=== PATIENT | male | born 1960 | race Caucasian/White ===

== ENCOUNTER 2017-08-03 15:25 | Observation (INO) | payer SELFPAY ==
[~2017-08-03] VITALS: Ht 170.2 cm; Wt 68.0 kg
[~2017-08-03 15:25] MED LIST: CHLO25CA; DILA100C
[2017-08-03 15:29] VITALS: BP 133/81; PULSE 117; RESP 18; O2SAT 91
[2017-08-03 15:36] VITALS: RESP 16; TEMP 98.1; O2SAT 94
--- NOTE | 2017-08-03 15:39 | PD ---
HPI Chief Complaint: Chest Pain Time Seen by Provider: 15:31 Travel History International Travel<30 days: No Contact w/Intl Traveler<30days: No Traveled to known affect area: No History of Present Illness HPI 56-year-old male patient with history of COPD, smoking, hypertension, presents to the ER today because he has been having chest pain since last night, currently rated at a 8 out of 10, substernal, and he describes it as heart pain. He denies any coughing, fevers, shortness of breath, or any other symptoms. He does not know of any exacerbating alleviating factors. Modifying Factors: None Associated Signs & Symptoms: Chest pain Risk Factors: None PFSH Past Medical History Chest Pain: Yes COPD: Yes Diminished Hearing: No Respiratory: Yes Seizures: Yes Tetanus Vaccination: Unknown Past Surgical History Tonsillectomy: Yes Other Surgery: Yes (TUBES IN EARS) Social History Alcohol Use: Yes Tobacco Use: Yes (1 03/15 PPD) Substance Use: No Allergies-Medications (Allergen,Severity, Reaction): Coded Allergies: No Known Allergies (Verified Allergy, Severe, 01/10/07) Reported Meds & Prescriptions Reported Meds & Active Scripts Active No Active Prescriptions or Reported Medications Review of Systems Except as stated in HPI: all other systems reviewed are Neg Physical Exam Narrative GENERAL: Well-developed middle-age white male patient currently in mild respiratory distress. Awake and oriented 3. SKIN: Focused skin assessment warm/dry. HEAD: Atraumatic. Normocephalic. EYES: Pupils equal and round. No scleral icterus. No injection or drainage. ENT: No nasal bleeding or discharge. Mucous membranes pink and moist. NECK: Trachea midline. Positive JVD. CARDIOVASCULAR: Regular rate and rhythm. No murmur appreciated. RESPIRATORY: No accessory muscle use. Clear to auscultation. Breath sounds equal bilaterally. GASTROINTESTINAL: Abdomen soft, non-tender, nondistended. Hepatic and splenic margins not palpable. MUSCULOSKELETAL: No obvious deformities. No clubbing. No cyanosis. No edema. NEUROLOGICAL: Awake and alert. No obvious cranial nerve deficits. Motor grossly within normal limits. Normal speech. PSYCHIATRIC: Appropriate mood and affect; insight and judgment normal. Data Data Last Documented VS Vital Signs Date Time Temp Pulse Resp B/P (MAP) Pulse Ox O2 Delivery O2 Flow Rate FiO2 08/03/17 15:36 98.1 16 94 Room Air 08/03/17 15:29 117 133/81 (98) Orders Orders Electrocardiogram (08/03/17 15:32) B-Type Natriuretic Peptide (08/03/17 15:32) Ckmb (Isoenzyme) Profile (08/03/17 15:32) Complete Blood Count With Diff (08/03/17 15:32) Comprehensive Metabolic Panel (08/03/17 15:32) Magnesium (Mg) (08/03/17 15:32) Prothrombin Time / Inr (Pt) (08/03/17 15:32) Act Partial Throm Time (Ptt) (08/03/17 15:32) Troponin I (08/03/17 15:32) Ecg Monitoring (08/03/17 15:32) Bilateral Bp Monitoring (08/03/17 15:32) Iv Access Insert/Monitor (08/03/17 15:32) Oximetry (08/03/17 15:32) Oxygen Administration (08/03/17 15:32) Aspirin (Aspirin) (08/03/17 15:45) Sodium Chloride 0.9% Flush (Ns Flush) (08/03/17 15:45) Chest, Pa & Lat (08/03/17 15:32) Albuterol-Ipratropium Neb (Duoneb Neb) (08/03/17 16:45) Activity Bed Rest With Brp (08/03/17 17:16) Vital Signs (Adult) Q4H (08/03/17 17:16) Cardiac Rhythm .As Directed (08/03/17 17:16) Notify Dr: Other .PRN (08/03/17 17:16) Notify . Parameters (08/03/17 17:16) Resp Oxygen Nasal Cannula (08/03/17 ) Diet Heart Healthy (08/03/17 Dinner) Ckmb (Isoenzyme) Profile (08/03/17 17:16) Ckmb (Isoenzyme) Profile (08/03/17 20:16) Troponin I (08/03/17 17:16) Troponin I (08/03/17 20:16) Electrocardiogram (08/03/17 17:16) Electrocardiogram (08/03/17 20:16) ^ Obtain (08/03/17 17:16) Sodium Chloride 0.9% Flush (Ns Flush) (08/03/17 17:30) Sodium Chloride 0.9% Flush (Ns Flush) (08/03/17 21:00) Nitroglycerin 2% Oint (Nitroglycerin 2% (08/03/17 18:00) Alprazolam (Xanax) (08/03/17 17:30) Channel Layer / Telemetry MALIA.Q8H (08/03/17 17:16) Admit Order (Ed Use Only) (08/03/17 17:16) Labs Laboratory Tests Test 08/03/17 15:38 White Blood Count 7.4 TH/MM3 Red Blood Count 4.81 MIL/MM3 Hemoglobin 16.0 GM/DL Hematocrit 46.4 % Mean Corpuscular Volume 96.4 FL Mean Corpuscular Hemoglobin 33.3 PG Mean Corpuscular Hemoglobin Concent 34.6 % Red Cell Distribution Width 14.0 % Platelet Count 239 TH/MM3 Mean Platelet Volume 7.5 FL Neutrophils (%) (Auto) 59.3 % Lymphocytes (%) (Auto) 26.0 % Monocytes (%) (Auto) 13.3 % Eosinophils (%) (Auto) 0.5 % Basophils (%) (Auto) 0.9 % Neutrophils # (Auto) 4.4 TH/MM3 Lymphocytes # (Auto) 1.9 TH/MM3 Monocytes # (Auto) 1.0 TH/MM3 Eosinophils # (Auto) 0.0 TH/MM3 Basophils # (Auto) 0.1 TH/MM3 CBC Comment DIFF FINAL Differential Comment Prothrombin Time 9.7 SEC Prothromb Time International Ratio 1.0 RATIO Activated Partial Thromboplast Time 26.9 SEC Blood Urea Nitrogen 5 MG/DL Creatinine 0.67 MG/DL Random Glucose 107 MG/DL Total Protein 7.7 GM/DL Albumin 3.6 GM/DL Calcium Level 8.5 MG/DL Magnesium Level 2.0 MG/DL Alkaline Phosphatase 104 U/L Aspartate Amino Transf (AST/SGOT) 52 U/L Alanine Aminotransferase (ALT/SGPT) 60 U/L Total Bilirubin 0.4 MG/DL Sodium Level 133 MEQ/L Potassium Level 3.7 MEQ/L Chloride Level 93 MEQ/L Carbon Dioxide Level 27.4 MEQ/L Anion Gap 13 MEQ/L Estimat Glomerular Filtration Rate 122 ML/MIN Total Creatine Kinase 86 U/L Troponin I LESS THAN 0.02 NG/ML B-Type Natriuretic Peptide 9 PG/ML MDM Medical Decision Making Medical Screen Exam Complete: Yes Emergency Medical Condition: Yes Medical Record Reviewed: Yes Interpretation(s) EKG shows sinus tachycardia at a rate of 114 bpm. No signs of acute ST elevations or depressions. Laboratory Tests Test 08/03/17 15:38 Monocytes (%) (Auto) 13.3 % (0.0-8.0) Monocytes # (Auto) 1.0 TH/MM3 (0-0.9) Prothrombin Time 9.7 SEC (9.8-11.6) Blood Urea Nitrogen 5 MG/DL (7-18) Random Glucose 107 MG/DL (74-106) Aspartate Amino Transf (AST/SGOT) 52 U/L (15-37) Sodium Level 133 MEQ/L (136-145) Chloride Level 93 MEQ/L (98-107) Troponin I LESS THAN 0.02 NG/ML Last 24 hours Impressions Chest X-Ray 08/03/17 1532 Signed Impressions: CONCLUSION: No acute cardiopulmonary process. Differential Diagnosis Chest pains: ACS versus pneumonia versus COPD exacerbation versus costochondritis Narrative Course Chest x-ray is unremarkable. EKG did not show any signs of acute ST elevations or depressions. He does have some tachycardia, likely secondary to some alcohol withdrawal as well as anxiety. Patient does not have a primary care doctor, had to have a lot of encouragement from his kids to be here. Cardiac enzymes are negative. Lab work was otherwise unremarkable. My plan would be to admit the patient for further evaluation and a chest pain center. Diagnosis Primary Impression: Chest pain Admitting Information Admitting Physician Requests: Admit Scripts No Active Prescriptions or Reported Meds Maykel Tenorio MD August 03, 2017 15:39
[2017-08-03] MEDS ORDERED: ASPIRIN 325 MG TAB PO ONE (15:45)
[2017-08-03] MEDS ORDERED: SODIUM CHLORIDE 0.9% FLUSH 10 ML FLUSH IVF PRN (15:45)
[2017-08-03 16:00] LABS: AUTOMATED NEUTROPHIL # 4.4 TH/MM3 (1.8-7.7); BASOPHIL # 0.1 TH/MM3 (0-0.2); BASOPHIL % 0.9 % (0.0-2.0); EOSINOPHIL % 0.5 % (0.0-4.0); HEMATOCRIT 46.4 % (39.0-51.0); LYMPHOCYTE # 1.9 TH/MM3 (1.0-4.8); MEAN CELL VOLUME 96.4 FL (80.0-100.0); MEAN CORPUSCULAR HEMOGLOBIN 33.3 PG (27.0-34.0); MEAN CORPUSCULAR HGB CONC 34.6 % (32.0-36.0); MEAN PLATELET VOLUME 7.5 FL (7.0-11.0); MONO % 13.3 % (0.0-8.0); NEUT % 59.3 % (16.0-70.0); PLATELET COUNT 239 TH/MM3 (150-450); RED BLOOD COUNT 4.81 MIL/MM3 (4.50-5.90); WHITE BLOOD COUNT 7.4 TH/MM3 (4.0-11.0)
[2017-08-03 16:10] LABS: PROTHROMBIN TIME - PATIENT 9.7 SEC (9.8-11.6)
--- NOTE | 2017-08-03 16:21 | RADRPT ---
EXAM DATE: 08/03/2017 4:13 PM EDT AGE/SEX: 56 years / Male INDICATIONS: Chest pain. CLINICAL DATA: This is the patient's initial encounter. Patient reports that signs and symptoms have been present for 1 day and indicates a pain score of 5/10. MEDICAL/SURGICAL HISTORY: . smokes None. COMPARISON: No prior [facility] exams available for comparison. FINDINGS: PA and lateral views of the chest demonstrate the lungs to be symmetrically aerated without evidence of mass, infiltrate or effusion. The cardiomediastinal contours are unremarkable. There is a mild com pression deformity at T9. This appears chronic.. CONCLUSION: No acute cardiopulmonary process. Electronically signed by: Tremayne Grant MD 08/03/2017 4:20 PM EDT
[2017-08-03 16:33] LABS: ALBUMIN 3.6 GM/DL (3.4-5.0); ALT (GPT) 60 U/L (12-78); AST (GOT) 52 U/L (15-37); BICARBONATE 27.4 MEQ/L (21.0-32.0); BLOOD UREA NITROGEN 5 MG/DL (7-18); CALCIUM 8.5 MG/DL (8.5-10.1); CHLORIDE 93 MEQ/L (98-107); CREATININE 0.67 MG/DL (0.60-1.30); GLOMERULAR FILTRATION RATE 122 ML/MIN (>89); GLUCOSE,RANDOM 107 MG/DL (74-106); SODIUM (NA) 133 MEQ/L (136-145)
[2017-08-03 16:37] LABS: ALKALINE PHOSPHATASE 104 U/L (45-117); TOTAL BILIRUBIN ADULT 0.4 MG/DL (0.2-1.0); TOTAL PROTEIN 7.7 GM/DL (6.4-8.2); TROPONIN I LESS THAN 0.02 NG/ML (0.02-0.05)
[2017-08-03] MEDS ORDERED: RESP: ALBUTEROL 2.5 MG/IPRATROPIUM 0.5 MG NEB (SCH) INH ONE (16:45)
[2017-08-03] MEDS ORDERED: SODIUM CHLORIDE 0.9% FLUSH 10 ML FLUSH IV FLUSH PRN (17:30)
[2017-08-03] MEDS ORDERED: ALPRAZolam 0.25 MG TAB PO PRN (17:30)
[2017-08-03 17:42] VITALS: BP 125/70
[2017-08-03] MEDS: NITROGLYCERIN 2% OINT 1 GM PACKET TOP SCH (17:43)
[2017-08-03 18:32] VITALS: BP 123/77; PULSE 104; RESP 18; TEMP 98.5; O2SAT 92
[2017-08-03 19:33] LABS: TROPONIN I LESS THAN 0.02 NG/ML (0.02-0.05)
[2017-08-03] MEDS ORDERED: IOHEXOL 350 MG/ML 10 ML VIAL (for RAD DIAG) IVCONTRAST ONE (19:39)
--- NOTE | 2017-08-03 19:51 | RADRPT ---
EXAM DATE: 08/03/2017 7:45 PM EDT AGE/SEX: 56 years / Male INDICATIONS: Chest pain CLINICAL DATA: This is the patient's initial encounter. Patient reports that signs and symptoms have been present for 2 days and indicates a pain score of 5/10. MEDICAL/SURGICAL HISTORY: Chronic obstructive pulmonary disease. Hypertension. Seizure None. RADIATION DOSE: 7.36 CTDI (mGy) COMPARISON: No prior [facility] exams available for comparison. TECHNIQUE: Volumetric scanning was performed using a multi-row detector CT scanner during bolus infu lena of 74 ml Omnipaque 350 (iohexol) nonionic water-soluble contrast as a single exam dose. The july a was post processed with a variety of visualization algorithms including full volume maximum intensi ty projection and sliding thin slab reformation. Using automated exposure control and adjustment of the mA and/or kV according to patient size, radiation dose was kept as low as reasonably achievable t o obtain optimal diagnostic quality images. FINDINGS: Pulmonary Arteries: No filling defects are seen in the pulmonary arteries through the segmental vess els. The main pulmonary artery is normal in diameter. Lung: Mild upper lobe predominant diffuse centrilobular emphysema. No focal parenchymal abnormality. Pleura: No effusion, significant pleural thickening or pneumothorax. Mediastinum: Heart is unremarkable without pericardial effusion. Prominent coronary artery calcifica tions. No evidence of mediastinal or hilar adenopathy. There is asymmetrical prominence of the right posterior esophageal wall with questionable trace paraesophageal fluid distally near the GE junction. Osseous Structures: No abnormal focal lytic or blastic bony lesions. Other: Diffusely decreased hepatic attenuation without significant volume loss. CONCLUSION: 1. No CT evidence for pulmonary artery embolism as questioned. 2. Asymmetrical prominence of the right mid to distal posterior esophageal wall with questionable tr alexis paraesophageal fluid distally near the GE junction. Findings may reflect esophagitis. Malignancy is less likely but cannot be excluded. 3. Prominent coronary artery calcifications. 4. Mild upper lobe predominant centrilobular emphysema. 5. Diffusely decreased hepatic density without volume loss consistent with hepatic steatosis. Electronically signed by: Vargas Prince MD 08/03/2017 7:49 PM EDT
[2017-08-03 20:01] VITALS: BP 109/71; PULSE 102; RESP 16; TEMP 98.5; O2SAT 92
[2017-08-03] MEDS: SODIUM CHLORIDE 0.9% FLUSH 10 ML FLUSH IV FLUSH SCH (20:29)
[2017-08-03 22:18] LABS: TROPONIN I LESS THAN 0.02 NG/ML (0.02-0.05)
[2017-08-03 23:00] VITALS: PULSE 96
[2017-08-04] VITALS: BP 129/66; PULSE 113; RESP 18; TEMP 98.6; O2SAT 96
[2017-08-04 04:00] VITALS: BP 130/74; PULSE 78; PULSE 84; RESP 18; TEMP 98.4; O2SAT 98
[2017-08-04] MEDS: NITROGLYCERIN 2% OINT 1 GM PACKET TOP SCH ×2 (06:00)
[2017-08-04] MEDS ORDERED: NITROGLYCERIN 0.4 MG SL 25 TABS/BTL SL PRN (07:15)
[2017-08-04] MEDS ORDERED: ONDANSETRON ODT 4 MG TAB PO PRN (07:15)
[2017-08-04] MEDS ORDERED: ACETAMINOPHEN 500 MG CPLT PO PRN (07:15)
--- NOTE | 2017-08-04 08:03 | HHI.HP ---
HPI Primary Care Physician No Primary Care Physician Chief Complaint Chest pain History of Present Illness 56-year-old male current smoker and reports daily alcohol use since the emergency room for further evaluation of chest pain. Onset Tuesday p.m. 10:00. Reports substernal chest discomfort described as "severe heartburn." No associated symptoms of nausea, vomiting, dyspnea, or diaphoresis. Took multiple antacids discomfort subsided. Discomfort returned Tuesday gradual onset. 2 PM discomfort became severe therefore called the back to bring the ER for further evaluation. Associated symptoms included "burning in my throat." No nausea, vomiting dyspnea or diaphoresis. Duration approximately 2 hours. No no precipitating or relieving factors. Last evening had moderate episode of substernal burning. Duration 1 hour. Denies similar pain in the past. No current chest pain. States "I feel fine now." No recent illness, fever, or chills. Denies hemoptysis or bowel changes. Eating or alcohol use does not make discomfort better or worse. (Radha Carlson) History of Present Illness The patient was given antacids by his daughter with resultant relief of discomfort for a short period of time. In spite of multiple encounters with a bruce the patient has not been free of alcohol abuse for more than 3 months in his entire adult life. Had long talk with the patient and with the family regarding his current status and imperative of stopping both cigarettes and alcohol at this time. Family is very supportive of change. (Julien Ruiz MD) Review of Systems General: No fatigue,weakness, fever, chills, or recent illness. He has been in his general state of health. HEENT: No CURTIS, no vision changes, no nasal congestion or drainage, no dysphasia. Denies history of GERD. CV: As stated above. No current chest pain, discomfort or pressure. No intermittent leg pain. RESP: No change in "daily smoker's cough." No SOB, wheeze, or hemoptysis. History of :"borderline" COPD, never being placed on inhalers. GI: No nausea, vomiting, bowel changes, diarrhea, constipation, pain, distention , melena, or blood in the stool. No change in appetite. : No dysuria, urgency, frequency, or hematuria EXT: No lower leg edema, no paraesthesias MS: No discomfort, injury, or change in ROM NEURO: No change in memory, difficulty with balance, LOC, motor/sensory deficits PSYCH: No anxiety or depression SKIN: No rashes, no concerning lesions (Radha Carlson) Past Family Social History Allergies: Coded Allergies: No Known Allergies (Verified Allergy, Severe, 01/10/07) Past Medical History COPD, alcohol abuse Past Surgical History Tonsillectomy Reported Medications Reported Meds & Active Scripts Active No Active Prescriptions or Reported Medications Active Ordered Medications Current Medications Medications (Trade) Dose Ordered Sig/Ash Route Start Time Stop Time Status Last Admin (NS Flush) 2 ml UNSCH PRN IV FLUSH 08/03/17 17:30 (NS Flush) 2 ml BID IV FLUSH 08/03/17 21:00 08/03/17 20:29 (Nitroglycerin 2% Oint) 1 inch Q6HR TOP 08/03/17 18:00 08/03/17 17:43 (Xanax) 0.25 mg Q8H PRN PO 08/03/17 17:30 08/03/17 21:32 (Tylenol) 500 mg Q4H PRN PO 08/04/17 07:15 (Zofran Odt) 4 mg Q6H PRN PO 08/04/17 07:15 (Nitrostat Sl) 0.4 mg Q5M PRN SL 08/04/17 07:15 (Aspirin) 325 mg DAILY PO 08/04/17 09:00 Family History Noncontributory for early onset cardiovascular disease. Social History No known coronary artery disease, hypertension, diabetes, or hyperlipidemia. Endorses not seen a primary care provider in over 10 years. Current 1.5 pack/day smoker. Endorses daily alcohol use, unable to give amount drank, stating "I drink all day." Single. Endorses active lifestyle and has physical job. Past cardiac testing None (Radha Carlson) Physical Exam Vital Signs Vital Signs Date Time Temp Pulse Resp B/P (MAP) Pulse Ox O2 Delivery O2 Flow Rate FiO2 08/04/17 04:00 78 08/04/17 04:00 98.4 84 18 130/74 (92) 98 08/04/17 00:00 98.6 113 18 129/66 (87) 96 08/03/17 23:00 96 5/23/18 20:01 98.5 102 16 109/71 (84) 92 08/03/17 18:50 08/03/17 18:32 98.5 104 18 123/77 (92) 92 08/03/17 17:42 125/70 (88) 08/03/17 15:36 98.1 16 94 Room Air 08/03/17 15:29 117 18 133/81 (98) 91 Physical Exam GENERAL: Alert WN, WD, NAD, pleasant, , thin male HEAD: NC, AT EYES: Sclera slightly reddened, conjunctiva without injection ENT: Mucous membranes pink and moist, poor dentation NECK: Supple, no masses, trachea midline CV: RRR, without murmur, rub, gallop, no JVD, S1-S2 no S3-S4. Chest wall nontender with palpation. RESP: Bilateral base expiratory wheeze with prolonged expiratory phase. No crackles, wheeze, or rhonchi. Symmetrical chest rise, nonlabored, able to speak in full sentences ABD: Soft, NT, ND, no masses, hepatomegaly, positive bowel tones, epigastric area nontender with palpation EXT: Pulses +2x4, no dependent edema MS: Normal tone x4 extremities, nontender, no obvious deformities, full range of motion NEURO: CN II through CN XII grossly intact, motor strength 5/5, gait WNL PSYCH: A+O x3, flat affect, appropriate speech, insight and judgment. Mild anxiety. SKIN: Normal turgor, normal texture, no lesions, no rashes, solar damage, tattoos, sluggish capillary refill Laboratory Laboratory Tests Test 08/03/17 15:38 08/03/17 18:35 08/03/17 21:37 White Blood Count 7.4 Red Blood Count 4.81 Hemoglobin 16.0 Hematocrit 46.4 Mean Corpuscular Volume 96.4 Mean Corpuscular Hemoglobin 33.3 Mean Corpuscular Hemoglobin Concent 34.6 Red Cell Distribution Width 14.0 Platelet Count 239 Mean Platelet Volume 7.5 Neutrophils (%) (Auto) 59.3 Lymphocytes (%) (Auto) 26.0 Monocytes (%) (Auto) 13.3 Eosinophils (%) (Auto) 0.5 Basophils (%) (Auto) 0.9 Neutrophils # (Auto) 4.4 Lymphocytes # (Auto) 1.9 Monocytes # (Auto) 1.0 Eosinophils # (Auto) 0.0 Basophils # (Auto) 0.1 CBC Comment DIFF FINAL Differential Comment Prothrombin Time 9.7 Prothromb Time International Ratio 1.0 Activated Partial Thromboplast Time 26.9 Blood Urea Nitrogen 5 Creatinine 0.67 Random Glucose 107 Total Protein 7.7 Albumin 3.6 Calcium Level 8.5 Magnesium Level 2.0 Alkaline Phosphatase 104 Aspartate Amino Transf (AST/SGOT) 52 Alanine Aminotransferase (ALT/SGPT) 60 Total Bilirubin 0.4 Sodium Level 133 Potassium Level 3.7 Chloride Level 93 Carbon Dioxide Level 27.4 Anion Gap 13 Estimat Glomerular Filtration Rate 122 Total Creatine Kinase 86 108 57 Troponin I LESS THAN 0.02 LESS THAN 0.02 LESS THAN 0.02 B-Type Natriuretic Peptide 9 Creatine Kinase MB 0.7 (Radha Carlson) Physical Exam Addendum: Conjunctiva is injected, throat is quite red. Abdomen reveals firm liver edge (Julien Ruiz MD) Result Diagram: 08/03/17 1538 08/03/17 1538 Imaging Last [address] Angiography 08/03/17 1728 Signed Impressions: CONCLUSION: 1. No CT evidence for pulmonary artery embolism as questioned. 2. Asymmetrical prominence of the right mid to distal posterior esophageal wal l with questionable trace paraesophageal fluid distally near the GE junction. F indings may reflect esophagitis. Malignancy is less likely but cannot be exclud ed. 3. Prominent coronary artery calcifications. 4. Mild upper lobe predominant centrilobular emphysema. 5. Diffusely decreased hepatic density without volume loss consistent with hep atic steatosis. Chest X-Ray 08/03/17 1532 Signed Impressions: CONCLUSION: No acute cardiopulmonary process. Course EKG Normal sinus tachycardia, no ST-T segment change (Radha Carlson) Caprini VTE Risk Assessment Caprini VTE Risk Assessment: No/Low Risk (score <= 1) Caprini Risk Assessment Model Point Value = 1 Point Value = 2 Point Value = 3 Point Value = 5 Age 41-60 Minor surgery BMI > 25 kg/m2 Swollen legs Varicose veins or History of unexplained or recurrent spontaneous Oral contraceptives or hormone replacement Sepsis (< 1 month) Serious lung disease, including pneumonia (< 1 month) Abnormal pulmonary function Acute myocardial infarction Congestive heart failure (< 1 month) History of inflammatory bowel disease Medical patient at bed rest Age 61-74 Arthroscopic surgery Major open surgery (> 45 min) Laparoscopic surgery (> 45 min) Malignancy Confined to bed (> 72 hours) Immobilizing plaster cast Central venous access Age >= 75 History of VTE Family history of VTE Factor V Leiden Prothrombin [id number] Lupus anticoagulant Anticardiolipin antibodies Elevated serum homocysteine Heparin-induced thrombocytopenia Other congenital or acquired thrombophilia Stroke (< 1 month) Elective arthroplasty Hip, pelvis, or leg fracture Acute spinal cord injury (< 1 month) Prophylaxis Regimen Total Risk Factor Score Risk Level Prophylaxis Regimen 0-1 Low Early ambulation 2 Moderate Order ONE of the following: *Sequential Compression Device (SCD) *Heparin 5000 units SQ BID 3-4 Higher Order ONE of the following medications: *Heparin 5000 units SQ TID *Enoxaparin/Lovenox 40 mg SQ daily (WT < 150 kg, CrCl > 30 mL/min) *Enoxaparin/Lovenox 30 mg SQ daily (WT < 150 kg, CrCl > 10-29 mL/min) *Enoxaparin/Lovenox 30 mg SQ BID (WT < 150 kg, CrCl > 30 mL/min) AND/OR *Sequential Compression Device (SCD) 5 or more Highest Order ONE of the following medications: *Heparin 5000 units SQ TID (Preferred with Epidurals) *Enoxaparin/Lovenox 40 mg SQ daily (WT < 150 kg, CrCl > 30 mL/min) *Enoxaparin/Lovenox 30 mg SQ daily (WT < 150 kg, CrCl > 10-29 mL/min) *Enoxaparin/Lovenox 30 mg SQ BID (WT < 150 kg, CrCl > 30 mL/min) AND *Sequential Compression Device (SCD) (Radha Carlson) Caprini VTE Risk Assessment: No/Low Risk (score <= 1) (Julien Ruiz MD) Assessment and Plan Assessment and Plan #1 Chest pain-admitted to chest pain center. Ruled out with 3 sets of EKGs, cardiac enzymes, and monitor overnight. Will be seen and evaluated by Dr. Julien Ruiz. Discussed possible cardiac testing due to risk factors, this will be determined after evaluation by port steward. Patient and daughter both at bedside agreeable to plan of care and verbalized understanding. #2 Tobacco use-strongly encouraged and stressed importance of tobacco cessation. Instructed to quit smoking. #3 Alcohol abuse-strongly encouraged to seek help for alcohol abuse, family is supportive, alcohol likely causative factor in complaint which suggests GI etiology. Begin CIWA protocol. Telephone numbers to local free or low cost medical clinic's provided to daughter. (Radha Carlson) Assessment and Plan Patient has ruled out using standard protocol. Behavior suggests that he is having mild withdrawal but appears to be stable. His current presentation is almost certainly esophagitis related to alcohol. Exercise stress testing is not available at this time and it is my opinion that he does not warrant nuclear testing until he is more stable. Family is very supportive and so the suggestions made to discharge to an abstinence environment with appropriate follow-up with a general physician post discharge to direct multiple health care needs as well as dental. If he encounters ongoing issues he certainly may return. Discussed Condition With Condition was discussed with the patient, the daughter, and either his son or son-in-law. (Julien Ruiz MD) Radha Carlson August 04, 2017 08:03 Julien Ruiz MD August 04, 2017 09:19
[2017-08-04] MEDS ORDERED: LORazepam 2 MG/ML VIAL IV PUSH PRN ×4 (08:15)
[2017-08-04] MEDS ORDERED: LORazepam 1 MG TAB PO PRN (08:15)
[2017-08-04] MEDS ORDERED: FLUMAZENIL 0.5 MG/5 ML VIAL IV PUSH PRN (08:15)
[2017-08-04] MEDS ORDERED: LORazepam 2 MG TAB PO PRN (08:15)
[2017-08-04 08:31] VITALS: BP 164/75; PULSE 96; RESP 18; TEMP 98.3; O2SAT 91
[2017-08-04] MEDS ORDERED: ASPIRIN 325 MG TAB PO SCH (09:00)
[2017-08-04] MEDS: SODIUM CHLORIDE 0.9% FLUSH 10 ML FLUSH IV FLUSH SCH (09:04)
--- NOTE | 2017-08-04 09:13 | HHI.DCPOC ---
Discharge Care Plan Diagnosis: (1) GERD (gastroesophageal reflux disease) (2) Alcohol abuse, daily use (3) Tobacco abuse Goals to Promote Your Health * To prevent worsening of your condition and complications * To maintain your health at the optimal level Directions to Meet Your Goals Take your medications as prescribed Follow your dietary instruction Follow activity as directed Keep your appointments as scheduled Take your immunizations and boosters as scheduled If your symptoms worsen call your PCP, if no PCP go to Urgent Care Center or Emergency Room Smoking is Dangerous to Your Health. Avoid second hand smoke Call the 24-hour hour crisis hotline for domestic abuse at Radha Carlson August 04, 2017 09:13
[2017-08-04] MEDS ORDERED: OMEP20TA93 PO (09:15)
--- NOTE | 2017-08-04 15:55 | EKG ---
Date Performed: 08/03/2017 Time Performed: 21:10:55 PTAGE: 56 years EKG: Sinus rhythm NORMAL ECG No significant change PREVIOUS TRACING : 08/03/2017 18.41 DOCTOR: Julien Ruiz Interpretating Date/Time 08/04/2017 15:54:28
--- NOTE | 2017-08-05 08:18 | EKG ---
Date Performed: 08/03/2017 Time Performed: 18:41:40 PTAGE: 56 years EKG: SINUS TACHYCARDIA ABNORMAL RHYTHM ECG PREVIOUS TRACING : 08/03/2017 15.38 DOCTOR: Angel Kathleen Interpretating Date/Time 08/05/2017 08:14:24
--- NOTE | 2017-08-05 08:26 | EKG ---
Date Performed: 08/03/2017 Time Performed: 15:38:15 PTAGE: 56 years EKG: SINUS TACHYCARDIA ABNORMAL RHYTHM ECG PREVIOUS TRACING : 01/10/2007 13.42 DOCTOR: Angel Kathleen Interpretating Date/Time 08/05/2017 08:17:44
== END 2017-08-04 11:17 | disposition home or self-care (01) ==
LOC: NEPE 15:25 → NEDA 17:19 → NEPFCDU 18:23
PROVIDERS: ADMIT Internal Medicine Cardiovascular Disease; ATTEND Internal Medicine Cardiovascular Disease
DX: R07.89 Other chest pain (principal); I10 Essential (primary) hypertension; K21.0 Gastro-esophageal reflux disease with esophagitis; F10.239 Alcohol dependence with withdrawal, unspecified; F41.9 Anxiety disorder, unspecified; R94.31 Abnormal electrocardiogram [ECG] [EKG]; J44.9 Chronic obstructive pulmonary disease, unspecified; F17.210 Nicotine dependence, cigarettes, uncomplicated
CPT/HCPCS: 71046; 71275; 80053; 82550; 82552; 83735; 83880; 84484; 85025; 85610; 85730; 93005; 94664; 99285; G0378; Q9967